=== PATIENT | female | born 1990 | race Caucasian/White ===

== ENCOUNTER 2022-06-02 17:14 | Inpatient (IN) | payer BC, OTHER ==
[2022-06-02 17:23] VITALS: BMI 28.8
[2022-06-02] MEDS ORDERED: ACETAMINOPHEN 1000 MG/100 ML BAG IVPB ONE (17:40)
[2022-06-02] MEDS ORDERED: SODIUM CHLORIDE 0.9% 1000 ML INFUS.BAG IV ONE (17:40)
[2022-06-02] MEDS ORDERED: METOCLOPRAMIDE HCL INJECTION 10 MG/2 ML VIAL IVPUSH ONE (17:40)
[2022-06-02] MEDS ORDERED: METOCLOPRAMIDE HCL INJECTION 10 MG/2 ML VIAL ONE (17:58)
[2022-06-02 18:43] LABS: EPI CELLS >36 /uL (0-25.1); HYALINE CASTS 4 /uL (0-3.1); PH,URINE 5.5 (5.0-8.0); URINE APPEARANCE TURBID; URINE BACTERIA 5278 /uL (0-1359); URINE BILIRUBIN NEGATIVE (NEGATIVE); URINE COLOR YELLOW; URINE GLUCOSE (UA) NEGATIVE (NEGATIVE); URINE KETONE NEGATIVE (NEGATIVE); URINE LEUK ESTERASE 2+ (NEGATIVE); URINE NITRITE NEGATIVE (NEGATIVE); URINE PROTEIN TRACE (NEGATIVE); URINE RBC 10 /uL (0-23.9); URINE UROBILINOGEN 0.2 mg/dL (0.2-1.0); URINE WBC 213 /uL (0-25.8)
[2022-06-02 18:47] LABS: BASO % 0.3 % (0-2.0); EOS % 0.9 % (0-4.5); HEMATOCRIT 33.2 % (32.4-45.2); HEMOGLOBIN 11.2 GM/dL (10.7-15.3); LYMPH % 24.1 % (8-40); MCH 30.6 pg (25.7-33.7); MCHC 33.6 g/dl (32.0-36.0); MEAN PLT VOLUME 9.3 fl (7.5-11.1); MONO % 6.4 % (3.8-10.2); NEUT % 68.3 % (42.8-82.8); PLATELET COUNT 311 10^3/uL (134-434); RBC 3.65 M/mm3 (3.60-5.2); RDW 13.1 % (11.6-15.6); WHITE BLOOD COUNT 9.2 K/mm3 (4.0-10.0)
[2022-06-02 18:50] LABS: ALBUMIN 3.2 g/dl (3.4-5.0); BLOOD UREA NITROGEN 8.9 mg/dL (7-18); MAGNESIUM 1.9 mg/dL (1.8-2.4)
[2022-06-02 18:54] LABS: INR 0.96 (0.83-1.09)
[2022-06-02 18:55] LABS: BILIRUBIN,TOTAL 0.3 mg/dL (0.2-1); TOT PROT 6.4 g/dl (6.4-8.2)
[2022-06-02 18:56] LABS: ACTIVATED PTT 28.1 SECONDS (25.2-36.5)
[2022-06-02] MEDS ORDERED: CEFTRIAXONE 1,000 MG in DEXTROSE 5%-WATER - 50 ML IVPB ONE (18:57)
[2022-06-02] MEDS ORDERED: CEFTRIAXONE 1 GM/50 ML BAG ONE (19:30)
[2022-06-02] MEDS ORDERED: ACETAMINOPHEN INJECTION 100 ML IVPB ONE (19:30)
[2022-06-02 19:55] LABS: CREATININE 0.5 mg/dL (0.55-1.3)
[2022-06-03] MEDS ORDERED: MELATONIN 5 MG TABLETS PO PRN (00:12)
[2022-06-03] MEDS ORDERED: ACETAMINOPHEN 325 MG TABLET (FP) PO PRN (00:13)
[2022-06-03] MEDS: METOCLOPRAMIDE HCL 10 MG TABLET (FP) PO SCH ×4 (00:39→21:49)
[2022-06-03] MEDS: SODIUM CHLORIDE 1,000 ML IV SCH ×2 (00:42→11:00)
[2022-06-03] MEDS: ACETAMINOPHEN 325 MG TABLET (FP) PO PRN ×3 (00:50→16:54)
[2022-06-03 08:10] LABS: BASO % 0.5 % (0-2.0); EOS % 1.1 % (0-4.5); HEMOGLOBIN 9.7 GM/dL (10.7-15.3); LYMPH % 30.8 % (8-40); MCH 30.6 pg (25.7-33.7); MCHC 33.6 g/dl (32.0-36.0); MEAN PLT VOLUME 9.6 fl (7.5-11.1); MONO % 5.9 % (3.8-10.2); NEUT % 61.7 % (42.8-82.8); PLATELET COUNT 251 10^3/uL (134-434); RBC 3.19 M/mm3 (3.60-5.2); RDW 13.3 % (11.6-15.6); WHITE BLOOD COUNT 7.7 K/mm3 (4.0-10.0)
[2022-06-03 08:38] LABS: BLOOD UREA NITROGEN 10.3 mg/dL (7-18); MAGNESIUM 1.8 mg/dL (1.8-2.4)
[2022-06-03 08:39] LABS: CREATININE 0.5 mg/dL (0.55-1.3); PHOSPHOROUS 3.8 mg/dL (2.5-4.9)
[2022-06-03 08:40] LABS: BILIRUBIN,TOTAL 0.2 mg/dL (0.2-1)
[2022-06-03 08:41] LABS: TOT PROT 5.1 g/dl (6.4-8.2)
[2022-06-03 08:42] LABS: ALBUMIN 2.5 g/dl (3.4-5.0)
[2022-06-03] MEDS: CEFTRIAXONE 1 GM in DEXTROSE 5%-WATER - 50 ML IVPB SCH (10:13)
[2022-06-03] MEDS: PRENATAL VITAMINS W/ FOLIC ACID TABLET (FP) PO SCH (10:13)
[2022-06-03] MEDS: ENOXAPARIN NA (PORCINE) 40 MG/0.4 ML DISP.SYRIN SQ SCH (10:13)
[2022-06-03 10:34] VITALS: RESP 18
[2022-06-03] MEDS ORDERED: ZOLPIDEM TARTRATE 5 MG TABLET PO PRN (20:18)
[2022-06-03 21:51] VITALS: PULSE 78
[2022-06-04] MEDS: METOCLOPRAMIDE HCL 10 MG TABLET (FP) PO SCH (06:16)
[2022-06-04] MEDS: SODIUM CHLORIDE 1,000 ML IV SCH (06:16)
[2022-06-04 08:13] LABS: BASO % 0.8 % (0-2.0); EOS % 0.6 % (0-4.5); HEMATOCRIT 30.8 % (32.4-45.2); HEMOGLOBIN 10.5 GM/dL (10.7-15.3); LYMPH % 21.4 % (8-40); MCH 30.9 pg (25.7-33.7); MEAN CELL VOLUME 90.8 fl (80-96); MEAN PLT VOLUME 9.1 fl (7.5-11.1); MONO % 4.7 % (3.8-10.2); NEUT % 72.5 % (42.8-82.8); PLATELET COUNT 274 10^3/uL (134-434); RBC 3.39 M/mm3 (3.60-5.2); RDW 12.5 % (11.6-15.6)
[2022-06-04 08:39] LABS: CALCIUM 8.6 mg/dL (8.5-10.1)
[2022-06-04 08:40] LABS: ALBUMIN 2.7 g/dl (3.4-5.0); BLOOD UREA NITROGEN 6.4 mg/dL (7-18); MAGNESIUM 1.8 mg/dL (1.8-2.4)
[2022-06-04 08:43] LABS: CREATININE 0.5 mg/dL (0.55-1.3)
[2022-06-04 08:45] LABS: BILIRUBIN,TOTAL 0.4 mg/dL (0.2-1); TOT PROT 5.5 g/dl (6.4-8.2)
[2022-06-04] MEDS: PRENATAL VITAMINS W/ FOLIC ACID TABLET (FP) PO SCH (09:13)
[2022-06-04] MEDS: ENOXAPARIN NA (PORCINE) 40 MG/0.4 ML DISP.SYRIN SQ SCH (09:13)
[2022-06-04] MEDS: CEFTRIAXONE 1 GM in DEXTROSE 5%-WATER - 50 ML IVPB SCH (09:13)
[2022-06-04 11:07] VITALS: BP 115/80; TEMP 98.2
== END 2022-06-04 11:25 | disposition home or self-care (01) | DRG 566 ==
LOC: JER 17:14 → JERBED 18:55 → J3W 23:39
PROVIDERS: ADMIT Internal Medicine; ATTEND Nurse Practitioner Acute Care
DX: O23.02 Infections of kidney in pregnancy, second trimester (principal); N12 Tubulo-interstitial nephritis, not specified as acute or chronic; Z3A.18 18 weeks gestation of pregnancy
CPT/HCPCS: 0241U-QW; 36415; 76775-TC; 76801-TC; 76856-TC; 80053; 81003; 83690; 83735; 84100; 84702; 85025; 85610; 85730; 86850; 86900; 86901; 87086; 87491; 87591; 99285-25